=== PATIENT | female | born 1940 | race Caucasian/White ===

== ENCOUNTER → 2017-06-11 | Outpatient (CLI) | payer MEDICARE | END | disposition home or self-care (01) | LOC: CVU 06:48 | PROVIDERS: ATTEND Internal Medicine Cardiovascular Disease | DX: I65.23 Occlusion and stenosis of bilateral carotid arteries (principal); I08.3 Combined rheumatic disorders of mitral, aortic and tricuspid valves; I70.203 Unspecified atherosclerosis of native arteries of extremities, bilateral legs; I10 Essential (primary) hypertension; E11.9 Type 2 diabetes mellitus without complications; E78.5 Hyperlipidemia, unspecified; I48.91 Unspecified atrial fibrillation; Z87.891 Personal history of nicotine dependence; Z95.0 Presence of cardiac pacemaker | CPT/HCPCS: 93306; 93880; 93925; 93978 ==

== ENCOUNTER → 2018-12-15 | Outpatient (CLI) | payer MEDICARE, MEDICAID | END | disposition home or self-care (01) | LOC: CFH 14:39 | PROVIDERS: ATTEND Internal Medicine Cardiovascular Disease | DX: I08.1 Rheumatic disorders of both mitral and tricuspid valves (principal); I48.91 Unspecified atrial fibrillation; Z95.0 Presence of cardiac pacemaker | CPT/HCPCS: 93306 ==

== ENCOUNTER 2020-06-25 22:18 | Emergency (ER) | payer MEDICARE, MEDICAID ==
[~2020-06-25] VITALS: Ht 152.4 cm; Wt 58.5 kg
--- NOTE | 2020-06-25 22:55 | NUR ---
PT AMBULATES FROM TRIAGE TO ROOM WITH CANE AND SLOW AND SHUFFLING GAIT.
--- NOTE | 2020-06-25 23:31 | NUR ---
PT TO IMAGING AT THIS TIME.
[2020-06-26 00:46] VITALS: BP 175/71
== END 2020-06-26 00:59 | disposition home or self-care (01) ==
LOC: ED 06-26 00:04
DX: S06.0X0A Concussion without loss of consciousness, initial encounter (principal); S39.012A Strain of muscle, fascia and tendon of lower back, initial encounter; S16.1XXA Strain of muscle, fascia and tendon at neck level, initial encounter; Z95.0 Presence of cardiac pacemaker; Z79.01 Long term (current) use of anticoagulants; W18.30XA Fall on same level, unspecified, initial encounter; Y93.89 Activity, other specified; Y92.410 Unspecified street and highway as the place of occurrence of the external cause; Y99.8 Other external cause status
CPT/HCPCS: 70450; 72125; 72131; 99285

== ENCOUNTER 2020-11-09 12:51 | Outpatient (CLI) | payer MEDICARE, MEDICAID | END 2020-11-09 23:59 | disposition home or self-care (01) | LOC: CVU 12:51 | PROVIDERS: ATTEND Nurse Practitioner Family | DX: I08.3 Combined rheumatic disorders of mitral, aortic and tricuspid valves (principal); I65.23 Occlusion and stenosis of bilateral carotid arteries; R06.02 Shortness of breath | CPT/HCPCS: 93306; 93880 ==

== ENCOUNTER 2020-11-26 10:46 | Observation (INO) | payer MEDICARE, MEDICAID ==
[~2020-11-26] VITALS: Ht 152.4 cm; Wt 55.0 kg
[2020-11-26] MEDS ORDERED: CHOL10003 PO (11:29)
[2020-11-26] MEDS ORDERED: CITA20TA9 PO (11:29)
[2020-11-26] MEDS ORDERED: FURO20TA3 PO (11:29)
[2020-11-26] MEDS ORDERED: ATOR40TA PO (11:29)
[2020-11-26] MEDS ORDERED: HUM100VI6 SQ-INSULIN (11:29)
[2020-11-26] MEDS ORDERED: MAGN400T36 PO (11:29)
[2020-11-26] MEDS ORDERED: POTA10TA PO (11:29)
[2020-11-26] MEDS ORDERED: ALBU18HF IH (11:29)
[2020-11-26] MEDS ORDERED: LOSA100T14 PO (11:29)
[2020-11-26] MEDS ORDERED: HYDR25TA6 PO (11:29)
[2020-11-26] MEDS ORDERED: WARF4TAB65 PO (11:29)
[2020-11-26] MEDS ORDERED: DIGO250T12 PO (11:29)
[2020-11-26] MEDS ORDERED: calcium PO (11:29)
[2020-11-26] MEDS ORDERED: AMLO-150 PO (11:29)
[2020-11-26] MEDS ORDERED: OMEG1CAP6 PO (11:29)
[2020-11-26] MEDS ORDERED: NIAC500T85 PO (11:29)
[2020-11-26] MEDS: SODIUM CHLORIDE 0.9% 1,000 ML IV SCH ×2 (11:30→19:30)
[2020-11-26 11:52] LABS: BASOPHILS % (AUTO) 1 % (0-1); EOSINOPHILS % (AUTO) 4 % (1-7); LYMPHOCYTES % (AUTO) 17 % (22-44); MEAN CORPUSCULAR HEMOGLOBIN 30.4 pg (27.0-34.8); MEAN CORPUSCULAR HGB CONC 32.6 g/dL (32.4-35.8); MEAN PLATELET VOLUME 7.7 fL (7.4-10.4); MONOCYTES % (AUTO) 8 % (2-9); NEUTROPHILS % (AUTO) 71 % (42-75); PLATELET COUNT 278 x10^3/uL (130-400); RED BLOOD COUNT 3.99 x10^6/uL (3.82-5.3); RED CELL DISTRIBUTION WIDTH 16.6 % (9.6-15.2)
[2020-11-26 11:56] LABS: ANION GAP 5 mmol/L (5-15); CALCIUM 9.6 mg/dL (8.5-10.1); CHLORIDE 112 mmol/L (98-107); CREATININE 1.17 mg/dL (0.55-1.02)
[2020-11-26 11:57] LABS: INTERNATIONAL NORMALIZED RATIO 2.61 (0.93-1.1); PROTHROMBIN TIME 27.4 Seconds (9.6-11.5)
[2020-11-26 11:59] LABS: MD NO
[2020-11-26] MEDS ORDERED: PLEASE ENTER HEIGHT AND WEIGHT MC SCH (12:00)
[2020-11-26] MEDS ORDERED: LIDOCAINE 2%, 20ML ONE (12:05)
[2020-11-26] MEDS ORDERED: CEFAZOLIN 1,000 MG ONE (12:05)
[2020-11-26] MEDS ORDERED: MIDAZOLAM 1 MG/ML, 5ML ONE (12:05)
[2020-11-26] MEDS ORDERED: CEFAZOLIN PMX 1GM/50ML 50 ML ONE (12:05)
[2020-11-26] MEDS ORDERED: FENTANYL PF 100 MCG/2ML ONE (12:05)
[2020-11-26] MEDS ORDERED: HOLD MEDICATION MC PRN (17:00)
[2020-11-26 17:07] VITALS: BP 146/64
[2020-11-26 18:55] VITALS: BP 135/70
[2020-11-26] MEDS ORDERED: ACETAMINOPHEN 325 MG TABLET PO ONE (20:30)
[2020-11-26] MEDS ORDERED: SODIUM CHLORIDE FLUSH 10ML SYR IVF SCH (21:00)
[2020-11-26] MEDS ORDERED: REG INSULIN SC SCH (21:00)
[2020-11-26] MEDS ORDERED: HUM INSULIN NPH SC SCH (21:00)
[2020-11-26] MEDS ORDERED: LOSARTAN 50MG TABLET PO SCH (21:00)
[2020-11-26] MEDS ORDERED: ATORVASTATIN 80 MG TABLET PO SCH (21:00)
[2020-11-26] MEDS ORDERED: [UNRECOGNIZED DRUG - OTHER] SC SCH (21:00)
[2020-11-27] MEDS ORDERED: HYDROCHLOROTHIAZIDE 25 MG TABLET PO SCH (09:00)
[2020-11-27] MEDS ORDERED: OMEGA-3/FISH OIL CAPSULE PO SCH (09:00)
[2020-11-27] MEDS ORDERED: CITALOPRAM 20 MG TABLET PO SCH (09:00)
[2020-11-27] MEDS ORDERED: AMLODIPINE 5 MG TABLET PO SCH (09:00)
[2020-11-27] MEDS ORDERED: TEMPLATE NON-FORMULARY MED. (Warfarin Sodium** 4 MG) PO SCH (18:00)
== END 2020-11-27 02:08 | disposition home or self-care (01) ==
LOC: CACL 10:46 → 5SO 16:42 → CACL 16:51 → 5SO 23:52
PROVIDERS: ADMIT Internal Medicine Cardiovascular Disease; ATTEND Internal Medicine Cardiovascular Disease
DX: T82.111A Breakdown (mechanical) of cardiac pulse generator (battery), initial encounter (principal); I12.9 Hypertensive chronic kidney disease with stage 1 through stage 4 chronic kidney disease, or unspecified chronic kidney disease; E11.22 Type 2 diabetes mellitus with diabetic chronic kidney disease; N18.30 Chronic kidney disease, stage 3 unspecified; M25.511 Pain in right shoulder; J44.9 Chronic obstructive pulmonary disease, unspecified; E87.6 Hypokalemia; F33.9 Major depressive disorder, recurrent, unspecified; Z72.0 Tobacco use; Z79.4 Long term (current) use of insulin; Z79.01 Long term (current) use of anticoagulants; Z79.899 Other long term (current) drug therapy
CPT/HCPCS: 33227; 36415; 71045; 71046; 80048; 85025; 85610; 99156; 99157; C1786; G0378; J0690; J2250; J3010; J3490